=== PATIENT | female | born 1935 | race Caucasian/White ===

== ENCOUNTER 2019-06-01 22:48 | Emergency (ER) | payer MEDICARE, OTHER ==
[2019-06-01] MEDS ORDERED: Meclizine 12.5 MG Tab PO ONE (22:49)
[2019-06-01] MEDS ORDERED: Ciprofloxacin 500 MG Tab PO ONE (22:49)
--- NOTE | 2019-06-01 23:25 | EDM.PDOC ---
ED HPI GENERAL MEDICAL PROBLEM - General Chief Complaint: Syncope Stated Complaint: VERTIGO Time Seen by Provider: 06/01/19 23:18 Source of Information: Reports: Patient, Family History Limitations: Reports: No Limitations - History of Present Illness INITIAL COMMENTS - FREE TEXT/NARRATIVE: Halina is an 83 yo female who presents to the ED via private vehicle, accompanied by her three children, with complaints of dizziness. States first episode happened around 12:30 this afternoon. States she ended up having another episode this evening around 5:30. States the vertigo would get so bad it would make her vomit. She admits it did end up happening again this evening as well, which prompted her family to bring her in. She states now she is feeling well. States she does have a history of atrial fibrillation with prior atrial ablation. States she hasn't had any problems with it since being on the Cardizem. States she has not had any chest pain or palpitations. Admits to being on Eliquis for history of atrial fibrillation. Also states she has a thyroid disorder and takes Synthroid for it. Has history of urinary tract infections but hasn't had any symptoms recently. States she thought she was getting one last week and took a quarter of a Ciprofloxacin pill and that seemed to take care of it. She has history of C. Diff and is very sensitive to certain antibiotics. Location: Reports: Generalized - Related Data Allergies Allergy/AdvReac Type Severity Reaction Status Date / Time naproxen [From Aleve] Allergy Tachycardia Verified 06/01/19 22:49 Home Meds: Home Meds Apixaban [Eliquis] 5 mg PO BID 06/01/19 [History] Diltiazem HCl [Diltiazem 24Hr ER] 360 mg PO DAILY 06/01/19 [History] Levothyroxine [Synthroid] 50 mcg PO DAILY 06/01/19 [History] Omeprazole 40 mg PO DAILY 06/01/19 [History] Past Medical History Cardiovascular History: Reports: Afib Gastrointestinal History: Reports: GERD Genitourinary History: Reports: UTI, Recurrent Endocrine/Metabolic History: Reports: Hypothyroidism - Past Surgical History Cardiovascular Surgical History: Reports: Cardiac Ablation Female Surgical History: Reports: Breast Biopsy, Oophorectomy Social & Family History - Tobacco Use Smoking Status *Q: Never Smoker - Alcohol Use Alcohol Use History: No - Living Situation & Occupation Living situation: Reports: , with Spouse Occupation: Retired ED ROS GENERAL - Review of Systems Review Of Systems: See Below Constitutional: Denies: Fever, Chills HEENT: Reports: Vertigo. Denies: Ear Pain, Eye Discharge, Vision Change Respiratory: Denies: Shortness of Breath Cardiovascular: Reports: Edema, Lightheadedness. Denies: Chest Pain, Palpitations, Syncope GI/Abdominal: Reports: No Symptoms : Reports: No Symptoms. Denies: Dysuria, Flank Pain, Frequency, Hematuria, Incontinence, Pain, Urgency Skin: Reports: No Symptoms Neurological: Reports: Dizziness. Denies: Confusion, Headache, Numbness, Pre- Existing Deficit, Seizure, Syncope, Tingling, Weakness, Change in Speech Psychiatric: Reports: No Symptoms ED EXAM, DIZZINESS - Physical Exam Exam: See Below Exam Limited By: No Limitations General Appearance: Alert, No Apparent Distress Eye Exam: Bilateral Eye: EOMI, Normal Inspection, PERRL Ears: Normal External Exam, Normal Canal, Normal TMs Nose: Normal Inspection, Normal Mucosa, No Blood Throat/Mouth: Normal Inspection, Normal Gums, Normal Oropharynx, Normal Voice, No Airway Compromise Head Exam: Atraumatic, Normocephalic Vertigo: No: worsens with head to L, worsens with head to R, reproducible Neck: Normal Inspection, Supple, Full Range of Motion. No: Carotid Bruit Respiratory/Chest: No Respiratory Distress, Lungs Clear, Normal Breath Sounds, No Accessory Muscle Use Cardiovascular: Regular Rate, Rhythm, No Murmur GI/Abdominal: Normal Bowel Sounds, Soft, No Distention Neurological: Alert, Normal Mood/Affect, CN II-XII Intact, No Motor/Sensory Deficits, Oriented x 3 Extremities: Pedal Edema (bilateral 1+ pedal edema, stasis dermatitis ) Psychiatric: Normal Affect, Normal Mood Skin Exam: Warm, Dry, Intact, Normal Color, No Rash EKG INTERPRETATION EKG Date: 06/01/19 Time: 23:25 Rhythm: NSR Comparison: NA - No Prior EKG Course - Vital Signs Last Recorded V/S: Last Vital Signs Temp 97.2 F 06/01/19 22:50 Pulse 89 06/01/19 22:50 Resp 16 06/01/19 22:50 BP 128/79 06/01/19 22:50 Pulse Ox 95 06/01/19 22:50 - Orders/Labs/Meds Orders: Active Orders 24 hr Category Date Time Status CULTURE URINE [RM] Stat Lab 06/01/19 23:10 Received Labs: Laboratory Tests 06/01/19 06/01/19 06/01/19 Range/Units 23:10 23:15 23:18 WBC 4.9 L (5.0-10.0) 10^3/uL RBC 3.77 L (4.00-5.50) 10^6/uL Hgb 11.4 L (12.0-16.0) g/dL Hct 34.6 L (37.0-47.0) % MCV 91.8 (82.0-94.0) fL MCH 30.2 (27.0-32.0) pg MCHC 32.9 L (33.0-38.0) g/dL RDW Coeff of Izaiah 13.1 (11.0-15.0) % Plt Count 215 (150-400) 10^3/uL Neut % (Auto) 81.2 (35-85) % Lymph % (Auto) 8.7 L (10-55) % [place] % (Auto) 8.3 (0-16) % Eos % (Auto) 1.6 (0-5) % Baso % (Auto) 0.2 (0-3) % Neut # (Auto) 3.99 (1.80-7.00) 10^3/uL Lymph # (Auto) 0.43 L (1.00-4.80) 10^3/uL [place] # (Auto) 0.41 (0.00-0.80) 10^3/uL Eos # (Auto) 0.08 (0.00-0.45) 10^3/uL Baso # (Auto) 0.01 10^3/uL Sodium 136 (136-145) mEq/L Potassium 3.7 (3.5-5.0) mEq/L Chloride 101 (98-106) mEq/L Carbon Dioxide 28 (21-32) mmol/L BUN 15 (7-18) mg/dL Creatinine 0.8 (0.6-1.0) mg/dL Est Cr Clr Drug Dosing 43.62 mL/min Estimated GFR (MDRD) > 60 (>=60) mL/min Glucose 129 H (75-99) mg/dL Calcium 8.6 (8.4-10.1) mg/dL Creatine Kinase 63 (21-215) U/L Troponin I < 0.017 (0.00-0.06) ng/mL C-Reactive Protein 1.8 H (0.2-0.8) mg/dL TSH, Ultra Sensitive 4.48 (0.36-5.60) uIU/mL Urine Color Yellow (YELLOW) Urine Appearance Clear (CLEAR) Urine pH 7.0 (4.5-8.0) Ur Specific [place] 1.020 (1.003-1.020) Urine Protein Negative (NEGATIVE) mg/dL Urine Glucose (UA) Negative (NEGATIVE) mg/dL Urine Ketones Trace H (NEGATIVE) mg/dL Urine Occult Blood Trace-intact H (NEGATIVE) Urine Nitrite Negative (NEGATIVE) Urine Bilirubin Negative (NEGATIVE) Urine Urobilinogen 0.2 (0.2-1.0) EU/dL Ur Leukocyte Esterase Trace H (NEGATIVE) Urine RBC 5-10 H (0-5) /HPF Urine WBC 5-10 H (0-5) /HPF Ur Epithelial Cells Few H (NOT SEEN) /HPF Calcium Oxalate Crystal Rare (NOT SEEN) /HPF Urine Bacteria Few H (NOT SEEN) /HPF Urine Yeast Rare (NOT SEEN) /HPF Meds: Medications Discontinued Medications Generic Name Dose Route Start Last Admin Trade Name Nori PRN Reason Stop Dose Admin Ciprofloxacin 2 packet 06/01/19 23:57 06/02/19 00:04 Take Home: Ciprofloxacin 500 Mg, 2 Tab Pack PO 06/01/19 23:58 2 packet ONETIME ONE Administration Meclizine HCl 2 packet 06/01/19 23:57 06/02/19 00:04 Take Home: Meclizine 12.5 Mg, 4 Tab Pack PO 06/01/19 23:58 2 packet ONETIME ONE Administration Departure - Departure Time of Disposition: 00:11 Disposition: Home, Self-Care 01 Clinical Impression: Vertigo UTI (urinary tract infection) Qualifiers: Urinary tract infection type: site unspecified Hematuria presence: with hematuria Qualified Code(s): N39.0 - Urinary tract infection, site not specified - Discharge Information Instructions: Vertigo, [id number], Urinary Tract Infection, Adult, Easy-to- Read, Urine Culture and Sensitivity Testing Referrals: PCP,None [Primary Care Provider] - Forms: ED Department Discharge Additional Instructions: 1) Ciprofloxacin 500mg twice a day for 7 days. 4 tablets given from ER, so prescription will be for 5 days. (UTI) 2) Urine culture is pending, will call with culture sensitivity report once available or may call my clinic at [phone] 3) Meclizine 12.5mg, may take 1-2 tablets every 8 hours as needed for vertigo, 8 tablets in total sent home from ER 4) Discussed staying for observation to monitor neurological and cardiac status. If any chest pain, palpitations, worsening dizziness, headaches, etc.. recommend returning to ED 5) May call nurses station if any concerns as well [phone] 6) Script written for canalith repositioning for dizziness to take to local physical therapist in [place] if recurrent vertigo. 7) Diflucan 100mg, take 1 tablet day 1 and repeat on day 3 for yeast noted on urinalysis. - Problem List & Annotations (1) UTI (urinary tract infection) SNOMED Code(s): 85358697 Code(s): N39.0 - URINARY TRACT INFECTION, SITE NOT SPECIFIED Status: Acute Current Visit: Yes Qualifiers: Urinary tract infection type: site unspecified Hematuria presence: with hematuria Qualified Code(s): N39.0 - Urinary tract infection, site not specified; R31.9 - Hematuria, unspecified (2) Vertigo SNOMED Code(s): 854024733 Code(s): R42 - DIZZINESS AND GIDDINESS Status: Acute Current Visit: Yes - My Orders Last 24 Hours: My Active Orders 06/01/19 23:10 CULTURE URINE [RM] Stat - Assessment/Plan Last 24 Hours: My Active Orders 06/01/19 23:10 CULTURE URINE [RM] Stat Plan: Halina has been asymptomatic during her time in the ED tonight. Cardiac work up was unremarkable. Neurological exam negative. Labs did show questionable UTI which culture was ordered. Did show trace of yeast as well. EKG showed NSR. Discussed findings with Halina and her family. Advised hospitalization under observation with cardiac and neurological monitoring which she declined tonight. Please see additional instructions.
[2019-06-01 23:44] LABS: CHLORIDE,CL 101 mEq/L (98-106); SODIUM,NA 136 mEq/L (136-145)
[2019-06-01] MEDS ORDERED: Take Home: Meclizine 12.5 MG Tab, 4 Tab Pack PO ONE (23:57)
[2019-06-01] MEDS ORDERED: Take Home: Ciprofloxacin 500 MG Tab, 2 Tab Pack PO ONE (23:57)
== END 2019-06-02 00:30 | disposition home or self-care (01) ==
LOC: CC.ED 22:48
DX: N39.0 Urinary tract infection, site not specified (principal); R42 Dizziness and giddiness; K21.9 Gastro-esophageal reflux disease without esophagitis; E03.9 Hypothyroidism, unspecified; Z88.8 Allergy status to other drugs, medicaments and biological substances; Z79.01 Long term (current) use of anticoagulants; Z79.899 Other long term (current) drug therapy
CPT/HCPCS: 36415; 80048; 81001; 82550; 84443; 84484; 85025; 86140; 87086; 93005; 99284; A9270; 87088; 93010

== ENCOUNTER 2021-05-09 18:47 | Emergency (ER) | payer MEDICARE, OTHER ==
[2021-05-09 19:23] LABS: CHLORIDE,CL 101 mEq/L (98-106); SODIUM,NA 138 mEq/L (136-145)
--- NOTE | 2021-05-09 19:23 | EDM.PDOC ---
ED HPI GENERAL MEDICAL PROBLEM - General Chief Complaint: General Stated Complaint: right lateral pain Time Seen by Provider: 05/09/21 19:05 Source of Information: Reports: Patient History Limitations: Reports: No Limitations - History of Present Illness INITIAL COMMENTS - FREE TEXT/NARRATIVE: States that she has been having right scapula pain for several weeks and has had some steroid shots to the area. She has gone to PT 5 times over the last 2 weeks. She does not feel that it has helped at all. She is scheduled for an MRI tomorrow in [place] of her neck and upper back by her report. Tonight she had more pain in the right arm and had shaking to both upper extremities for about an hour. This scared her so she came into the ER to be checked. She Also had some numbness to the right side of her calf which is also subsided at this time. She states that she does have known neuropathy of both feet but unknown cause. She has been taking her pain meds which does help. She denies changing anything that made the shaking stop. She denies being in the sun today and feels that she has been drinking adequately. Denies any chest pain, dizziness or drooping. Onset: Today Location: Reports: Upper Extremity, Left, Upper Extremity, Right Associated Symptoms: Denies: Chest Pain, Cough, Diaphoresis, Fever/Chills, Headaches, Nausea/Vomiting, Weakness - Related Data Allergies Allergy/AdvReac Type Severity Reaction Status Date / Time naproxen [From Aleve] Allergy Tachycardia Verified 06/01/19 22:49 Home Meds: Home Meds Apixaban [Eliquis] 5 mg PO BID 06/01/19 [History] Diltiazem HCl [Diltiazem 24Hr ER] 360 mg PO DAILY 06/01/19 [History] Levothyroxine [Synthroid] 50 mcg PO DAILY 06/01/19 [History] Omeprazole 40 mg PO DAILY 06/01/19 [History] Past Medical History Cardiovascular History: Reports: Afib Gastrointestinal History: Reports: GERD Genitourinary History: Reports: UTI, Recurrent 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 (See Below) Other SKILLED LABOR History: had ovaries removed as had a mass on them; not cancerous Endocrine/Metabolic History: Reports: Hypothyroidism - Past Surgical History Cardiovascular Surgical History: Reports: Cardiac Ablation Female Surgical History: Reports: Breast Biopsy, Oophorectomy Social & Family History - Tobacco Use Tobacco Use Status *Q: Never Tobacco User - Caffeine Use Caffeine Use: Reports: Coffee Caffeine Use Comment: decaf - Recreational Drug Use Recreational Drug Use: No - Living Situation & Occupation Living situation: Reports: , with Spouse Occupation: Retired ED ROS GENERAL - Review of Systems Review Of Systems: See Below Constitutional: Denies: Fever HEENT: Reports: No Symptoms Respiratory: Reports: No Symptoms Cardiovascular: Reports: No Symptoms GI/Abdominal: Reports: No Symptoms : Reports: No Symptoms Musculoskeletal: Reports: Neck Pain, Shoulder Pain, Arm Pain Skin: Reports: Bruising (to right scapula area.) Neurological: Reports: Other (see HPI) Psychiatric: Reports: No Symptoms ED EXAM, GENERAL - Physical Exam Exam: See Below Exam Limited By: No Limitations General Appearance: Alert, WD/WN, No Apparent Distress, Other (she states that she feels back to her baseline of the chronic pain that she had been having.) Ears: Normal External Exam, Normal Canal Throat/Mouth: Normal Inspection, Normal Oropharynx Head: Atraumatic, Normocephalic Neck: Normal Inspection, Supple, Non-Tender, Full Range of Motion Respiratory/Chest: No Respiratory Distress, Lungs Clear, Normal Breath Sounds, Chest Non-Tender Cardiovascular: Regular Rate, Rhythm, No Edema GI/Abdominal: Normal Bowel Sounds, Soft, Non-Tender Back Exam: Normal Inspection, Full Range of Motion Extremities: Other (She is tender to the right scapula area with movment and palpation. She has some pain to the thoracic spine and cervical spine with movement and palpation.) Neurological: Alert, Oriented, CN II-XII Intact Psychiatric: Normal Affect, Normal Mood Skin Exam: Warm, Dry, Intact Course - Orders/Labs/Meds Orders: Active Orders 24 hr Category Date Time Status EKG Documentation Completion [RC] STAT Care 05/09/21 18:54 Active COMPREHENSIVE METABOLIC PN,CMP [CHEM] Stat Lab 05/09/21 18:51 Ordered CREATINE KINASE,CK [CHEM] Stat Lab 05/09/21 18:51 Ordered LACTATE DEHYDROGENASE,LDH [CHEM] Stat Lab 05/09/21 18:51 Ordered LACTIC ACID [CHEM] Stat Lab 05/09/21 18:51 Ordered PRO B-TYPE NATRIUR PEPT,BNPPRO [CHEM] Stat Lab 05/09/21 18:51 Ordered TROPONIN I [CHEM] Stat Lab 05/09/21 18:51 Ordered UA W/MICROSCOPIC [URIN] Stat Lab 05/09/21 18:51 Ordered Labs: Laboratory Tests 05/09/21 Range/Units 18:51 WBC 3.4 L (4.0-11.0) 10^3/uL RBC 3.96 L (4.00-5.50) x10^6/uL Hgb 11.8 L (12.0-16.0) g/dL Hct 36.3 L (37.0-47.0) % MCV 91.7 (83.0-97.0) fL MCH 29.8 (27.0-32.0) pg MCHC 32.5 (32.0-36.0) g/dL RDW Coeff of Izaiah 13.8 (11.0-15.0) % Plt Count 176 (150-400) 10^3/uL Immature Gran % (Auto) 0.3 (0.0-4.9) % Neut % (Auto) 61.5 (41-71) % Lymph % (Auto) 25.1 (24-44) % [place] % (Auto) 10.4 H (0-10) % Eos % (Auto) 2.4 (0-6) % Baso % (Auto) 0.3 (0-1) % Neut # (Auto) 2.06 (1.80-8.00) x10^3/uL Lymph # (Auto) 0.84 (0.60-5.00) 10^3/uL [place] # (Auto) 0.35 (0.00-1.50) 10^3/uL Eos # (Auto) 0.08 (0.00-1.50) 10^3/uL Baso # (Auto) 0.01 (0.00-0.50) 10^3/uL Immature Gran # (Auto) 0.01 (0.00-0.49) 10^3/uL - Re-Assessments/Exams Free Text/Narrative Re-Assessment/Exam: 05/09/21 19:42 labs are all stable at this time. She feels that she is back to her baseline. will discharge. Departure - Departure Time of Disposition: 19:43 Disposition: Home, Self-Care 01 Condition: Good Clinical Impression: Pain in scapula - Discharge Information *PRESCRIPTION DRUG MONITORING PROGRAM REVIEWED*: Not Applicable *COPY OF PRESCRIPTION DRUG MONITORING REPORT IN PATIENT MAVIS: Not Applicable Forms: ED Department Discharge Additional Instructions: Keep appt for MRI tomorrow in [place]. Use pain meds as needed recheck with PCP in follow up. - Problem List & Annotations (1) Pain in scapula SNOMED Code(s): 19921112 Code(s): M89.8X1 - OTHER SPECIFIED DISORDERS OF BONE, SHOULDER Status: Acute Priority: High - Problem List Review Problem List Initiated/Reviewed/Updated: Yes - My Orders Last 24 Hours: My Active Orders 05/09/21 18:51 COMPREHENSIVE METABOLIC PN,CMP [CHEM] Stat CREATINE KINASE,CK [CHEM] Stat LACTATE DEHYDROGENASE,LDH [CHEM] Stat LACTIC ACID [CHEM] Stat PRO B-TYPE NATRIUR PEPT,BNPPRO [CHEM] Stat TROPONIN I [CHEM] Stat UA W/MICROSCOPIC [URIN] Stat 05/09/21 18:54 EKG Documentation Completion [RC] STAT - Assessment/Plan Last 24 Hours: My Active Orders 05/09/21 18:51 COMPREHENSIVE METABOLIC PN,CMP [CHEM] Stat CREATINE KINASE,CK [CHEM] Stat LACTATE DEHYDROGENASE,LDH [CHEM] Stat LACTIC ACID [CHEM] Stat PRO B-TYPE NATRIUR PEPT,BNPPRO [CHEM] Stat TROPONIN I [CHEM] Stat UA W/MICROSCOPIC [URIN] Stat 05/09/21 18:54 EKG Documentation Completion [RC] STAT
== END 2021-05-09 19:50 | disposition home or self-care (01) ==
LOC: CC.ED 18:47
DX: M25.511 Pain in right shoulder (principal); E03.9 Hypothyroidism, unspecified; I48.91 Unspecified atrial fibrillation; Z79.01 Long term (current) use of anticoagulants; Z79.899 Other long term (current) drug therapy; Z88.5 Allergy status to narcotic agent
CPT/HCPCS: 36415; 80053; 81001; 82550; 83605; 83615; 83880; 84484; 85025; 93005; 93010; 99283-25; 99284

== ENCOUNTER → 2023-05-02 | Day surgery (SDC) | payer MEDICARE, OTHER ==
[~2023-05-02] MED LIST: Ketamine 200 MG/20 ML MDV ONE; Phenylephrine 1% 10 MG/ML SDV ONE; Propofol 200 MG/20 ML SDV ONE; fentaNYL 50 MCG/ML SDV ONE
[2023-05-02] MEDS: Lactated Ringers 1,000 ML IV SCH (09:02)
== END ==
LOC: CC.SDS 08:49
PROVIDERS: ATTEND Family Medicine
DX: D12.3 Benign neoplasm of transverse colon (principal); D12.2 Benign neoplasm of ascending colon; D12.5 Benign neoplasm of sigmoid colon; K63.5 Polyp of colon; K57.30 Diverticulosis of large intestine without perforation or abscess without bleeding; K64.8 Other hemorrhoids; K63.89 Other specified diseases of intestine; I48.91 Unspecified atrial fibrillation; E78.5 Hyperlipidemia, unspecified; E07.9 Disorder of thyroid, unspecified; M81.0 Age-related osteoporosis without current pathological fracture; K21.9 Gastro-esophageal reflux disease without esophagitis; Z98.890 Other specified postprocedural states; Z87.891 Personal history of nicotine dependence; Z79.01 Long term (current) use of anticoagulants; Z79.890 Hormone replacement therapy; Z79.899 Other long term (current) drug therapy
CPT/HCPCS: 00811; 99100; J2370; J2704; J3010; J3490; J7120